=== PATIENT | female | born 1970 | race Caucasian/White ===

== ENCOUNTER 2017-11-23 18:00 | Outpatient (RCR) | payer OTHER, SELFPAY ==
--- NOTE | 2017-10-25 17:49 | HP.PTEVAL ---
Patient's Visit Information LORENZO COX is a 47 year old F referred to Physical Therapy by Javier Glez, with a diagnosis of R REVISION CUBITAL TUNNEL RELEASE W/ ANTERIOR TRANSPOSITION. R MED EPICONDY. Date of Evaluation: 10/25/17 Physical Therapist: Christi Solitario - Visit Plan Frequency: 2x /Week Duration: 10 VISITS Plan: POSTURE CORRECTION/STRENGTHENING, INSTRUCTION IN APPROPRIATE BODY MECHANICS AND ACTIVITY MODIFICATIONS. INSTRUCTION IN PROPER WORK STATION ERGONOMICS. RIGHT UE ROM, STRETCHING AND STRENGTHENING. EDEMA REDUCTION. DESENSITIZATION/SENSORY RETRAINING. HEP INSTRUCTION. - Subjective Subjective: Diagnosis: R REVISION CUBITAL TUNNEL RELEASE W/ ANTERIOR TRANSPOSITION DECEMBER [address] GLEZ. R MED EPICONDYLITIS/GOLFERS ELBOW. Work/Leisure: [email or web address]. 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 Disability: NO. Present symptoms: RIGHT MEDIAL ELBOW PAIN/NUMBNESS/TINGLING. Present since: 2013. Pain Scale: WORST 6/10, LEAST 2/10. Currently: 4/10. 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 Symptoms at onset: NUMBNESS RIGHT DIGITS 4&5. Worse: LYING DOWN, PRESSURE ON AN ARM REST, PRONLONGED BENT ELBOW - EX ON PHONE, PULLING DOWN FROM OVER-HEAD, PROLONGED TYPING, WORSE THE DAY PROGRESSES. Better: REST, STRETCHING, IBUPROFEN. Disturbed sleep: YES. Previous history/Previous treatment: 2 SURGERIES. MOST RECENT 2015. PT. OT. Dizziness: NOT CURRENTLY. Tinnitis: NOT CURRENTLY. Nausea: NO. Difficulty Swollowing: NO. Gait: NORMAL. Accidents: NO. Unexplained weight loss: NO. Imaging: NO RECENT IMAGING. PMH: MENIERS DZ, HYPOTHYROIDISM. Recent major surgery: NO OTHERS. OTHER: PATIENT REPORTS THAT THE THINGS SHE KNOWS TO DO ARE NOT HELPING HER ELBOW CONTINUE TO GET BETTER AND SHE IS WONDERING IF IT IS GOING TO BE THIS WAY FOR THE REST OF HER LIFE OR IF THERE IS ANYTHING ELSE THAT CAN BE DONE. DOING CROSS FIT UNTIL LAST BUT HURT HER RIGHT WRIST SO HAS NOT GONE BACK. PATIENT REPORTS HER RIGHT ELBOW WAS DOING ABOUT THE SAME WITH CROSS FIT VS WITHOUT. SHE REPORTS HER WRIST IS FINE NOW. - Objective Sitting Posture: POOR. Standing Posture: FAIR. Other Observations: INDEP GAIT INTO PT WITHOUT ASSISTIVE DEVICE. PATIENT IS PLEASANT AND COOPERATIVE TO WORK WITH. Motor deficit: PHILIP UE STRENGTH IS 5/5 WITH MMT EXCEPT PHILIP SCAPULAR STRENGTH GRADED 4/5. PATIENT DENIES INCREASED PAIN WITH STRENGTH TESTING EXCEPT ALMOND GRINDER TEST. RIGHT HAND DOMINANT WITH A RIGHT ALMOND GRINDER STRENGTH OF 65 LBS AND LEFT 70 LBS. INCREASED PAIN WITH TESTING ON THE RIGHT. Sensory deficit: HYPERSENSATIVITY OF RIGHT ELBOW SCAR. ROM deficit: FULL RIGHT UE ROM. Dural Signs: NEGATIVE. Cervical Mvmt Loss: Flex: NIL. Pro: NIL. Ext: MIN. Ret: MIN TO MOD. RSB: NIL. LSB: NIL. R Rot: NIL. L Rot: NIL. Postural strength: POOR. Palpation: GOOD RIGHT ELBOW SCAR MOBILITY. INCREASED PAIN WITH PRESSURE ON RIGHT MEDIAL ELBOW. OTHER: INCREASED RIGHT ELBOW PAIN WITH STRETCHING OF RIGHT WRIST FLEXORS. - Goals Goal 1:: DECREASE C/O RIGHT MEDIAL ELBOW SX'S Goal Time Frame: 4-6 Weeks Goal 2:: IMPROVE WORK, RECREATIONAL AND SLEEP FUNCTION Goal Time Frame: 4-6 Weeks Goal 3:: INDEP HEP Goal Time Frame: 4-6 Weeks - Rehabilitation Potential Rehabilitation Potential: Fair - Anticipated Interventions Patient/Client Instruction: Educate patient on: Condition, Plan of Care, Risk Factors, Benefits of Fitness Program For the Purpose of:: To improve self management Therapeutic Exercise to Include: Strength training, Body mechanics, Postural training, Flexibilty training, Neuromotor development, Scapular Strength/Stabilization Comment: *INSTRUCTION IN PROPER WORK STATION ERGONOMICS For the Purpose of:: To improve ability of physical actions for home/community/work/leisure Manual Therapy Techniques to Include: Other Comment: DESENSITIZATION For the Purpose of:: To decrease pain Thank you for the opportunity to evaluate your patient. For Medicare and Medicare HMO plans, please review the plan of care and approve it. It will need to be FAXED BACK to us at [phone] for Medicare purposes. Please let me know if there are questions or concerns regarding this plan of care. Physician Signature: Date:
--- NOTE | 2017-11-29 17:30 | DT_ITS ---
This patient was seen during an EMR downtime November 27, 2017 - December 04, 2017. This patient may have a combination of paper and electronic documentation or all paper documentation. All documentation is viewable within the e-chart portion of [employer] for each patient visit.
--- NOTE | 2017-12-24 13:21 | HP.PTDCSUM ---
HP - PT D/C Summary It has been my pleasure to treat LORENZO COX under orders from Javier Hartman, , for the diagnosis of R REVISION CUBITAL TUNNEL RELEASE W/ ANTERIOR TRANSPOSITION. R MED EPICONDLeona for a total of 9 visit(s). Discharge Date: 11/29/17 Please see the following information for a summary of their discharge status. - Subjective Subjective: NO WORSE. MAYBE A LITTLE BETTER. THINKS THE STRETCHES MIGHT HELP WITH TIME. F/U SCHEDULED IN ABOUT [address] CHU AT [facility]. - Pain RIGHT MEDIAL ELBOW Pain Intensity (Out of 10): 1 - Overall Improvement % Improvement: 0 - Objective Objective/Function: PHILIP MANAGER BUSINESS INFORMATION 70 LBS. GOOD RIGHT SHOULDER ROM AND STRENGTH. RIGHT ELBOW, WRIST AND HAND ROM AND STRENGTH WFL. THE ONLY THING THAT PROVOKES PAIN IS RIGHT MEDIAL ELBOW PALPATION TODAY. NO SIGNIFICANT CHANGES BUT INDEP WITH HEP. US - NE. - Goals Goal 1:: DECREASE C/O RIGHT MEDIAL ELBOW SX'S Goal Progress: Not Progressing Goal 2:: IMPROVE WORK, RECREATIONAL AND SLEEP FUNCTION Goal Progress: Not Progressing Goal 3:: INDEP HEP Goal Progress: Goal Met - Plan Plan: D/C DUE TO LACK OF PROGRESS. PATIENT AGREEABLE. - D/C Information If there are questions or concerns regarding this patient's physical therapy, please feel free to call me at [phone]. Thank you for the referral of this patient. Sincerely, Christi Solitario
== END 2017-11-23 19:00 | disposition home or self-care (01) ==
LOC: PT 18:00
PROVIDERS: Family Provider Student in an Organized Health Care Education/Training Program; PCP Student in an Organized Health Care Education/Training Program; Visit Provider Orthopaedic Surgery Hand Surgery
DX: M77.01 Medial epicondylitis, right elbow (principal)
CPT/HCPCS: 97035; 97110; 97161; 97164; 97530

== ENCOUNTER 2018-08-23 10:21 | Day surgery (SDC) | payer BC, SELFPAY ==
[2018-08-23] VITALS (10 sets, daily range): BP systolic 93–146; BP diastolic 71–86; PULSE 58–73; RESP 16–18; TEMP 36.3–37.3; O2SAT 96–100; BMI 26.9
[2018-08-23 10:46] LABS: Internal QC Validated? YES +Cl - CLEAR BKGD; Pregnancy, Urine Negative Negative
[2018-08-23 10:49] LABS: Hematocrit 43.1 % (37-47); Hemoglobin 14.5 g/dl (12.0-15.0); Mean Corp Hgb Conc 33.6 g/gl (32-36); Mean Corpuscular Hgb 32.6 pg (27.0-32.0); Mean Corpuscular Volume 96.9 fL (81-99); Mean Platelet Vol. 9.9 fl (6.2-12.0); Platelet Count 286 K/mm3 (150-450); RBC Distribution Width CV 12.2 % (11.6-14.6); Red Blood Count 4.45 M/mm3 (4.2-5.4); White Blood Count 7.8 K/mm3 (4.4-11.0)
[2018-08-23 10:52] LABS: Scan Indicated on CBC? Y/N NO
--- NOTE | 2018-08-23 11:55 | EMB_PTH ---
PATIENT: LORENZO COX LOC: [facility] [place] U#:[id number] AGE/SX: 48/F ROOM: RE08/23/[address]: Dr. Priya Ojeda DO : 1970 BED: DIS: 08/23/2018 SPEC #: [id number] RECD: 08/23/18 14:56 STATUS: NEAL CHRISSY #: [id number] KAYLI: 08/23/18 11:[address]: Priya Ojeda DEPT: SURGICAL PATHOLOGY RECD BY: Angus Bryant ENTERED: 08/24/18 11:16 SP TYPE: ENDOM BX/C GABRIELHR DR: Dr. Blade Toure DO Tissues: Endometrium, NOS Procedures: Surgery Specimen Level IV HEADER OPERATION: Hysteroscopy, polypectomy with Symphion, dilation and curettage PRE-OP DIAGNOSIS: Abnormal uterine bleeding, endometrial polyp TISSUE SUBMITTED: Endometrial curettings MICROSCOPIC DIAGNOSIS Endometrial curettings: Weakly proliferative endometrium with focal glandular and stromal breakdown. See comment. SJ:shanthi 08/27/18 COMMENT A few of the fragments appear polypoid and may represent fragments of polyp. MICROSCOPIC DESCRIPTION Slides are reviewed. GROSS DESCRIPTION Received in fixative is one container labeled with the patient's name and designated endometrial curettings. The specimen consists of multiple fragments of hemorrhagic soft tissue that in aggregate measure 3 x 2.5 x 0.2 cm. The specimen is totally submitted in one cassette. / MARYCHUY:shanthi 08/24/18 TC:5 CPT: 88511
--- NOTE | 2018-08-23 12:36 | PCM.WORK.EX ---
Work/School Excuse Work/School Excuse for:: Patient Please excuse this person from:: Work From: 08/23/18 through: 08/24/18
--- NOTE | 2018-08-23 12:39 | DCINST_ITS ---
Discharge Diet: No Restrictions Discharge Activity: Return to Normal Activity, May Shower May resume sexual activity in: 1-2 weeks Weight Bearing Status: Full weight bearing Lifting Restrictions: None Call your doctor if you observe: Fever of 101 or Higher, Inability to urinate, Inability to have a bowel movement, Using more than one pad per hour, Shortness of breath, Dizziness, Fainting spells, Chest pain, Increased palpitations (ir regular heartbeat), Calf discomfort, Uncontrolled pain Allergies/Adverse Reactions: Allergies latex Allergy (Verified 08/21/18 13:02) Rash Medications to take at Discharge Meclizine HCl [Antivert] 12.5 mg PO Q6H PRN PRN 02/03/15 Triamterene 37.5MG/Hctz 25MG [Dyazide (G)] 1 cap PO DAILY PRN PRN 02/03/15 Levothyroxine [Synthroid] 100 mcg PO DAILY #90 tablet 02/09/15 Diazepam [Valium] 2 mg PO TID PRN PRN #10 tablet 08/13/15 Norethindrone-E.estradiol-Iron [Junel Fe 1 mg-20 Mcg Tablet] 1 each PO DAILY 08/21/18 Primary Care Physician: Blade Toure DO [Primary Care Provider] - Test Results: Test results from this visit will be discussed in further detail at your follow- up appointment, if applicable. Please Follow Up With: Priya Ojeda DO When: 1-2 weeks
--- NOTE | 2018-08-23 12:40 | PCM.OPRPT ---
Problem List (1) Abnormal uterine bleeding (AUB) Status: Acute (2) Endometrial polyp Status: Acute Report of Operation Date of Procedure: 08/23/18 Pre-Operative Diagnosis: AUB, endometrial polyp on in office biopsy Post-Operative Diagnosis: AUB Surgery/Procedure Performed:: Hysteroscopy, polypectomy, D&C Description of Surgical Findings:: Very good descent of uterus and cervix. Uterine cavity normal in appearance, bilateral tubal ostia visualized. Endometrium thin and atrophic appearing. No polyp or fibroid noted. Type of Anesthesia:: MAC Specimen's removed: Endometrial curettings Estimated Blood Loss (mL): < 50 cc Description of Procedure: Patient was taken to the operating room where MAC anesthesia was found to be adequate. She was prepped and draped in the dorsal lithotomy position using yellow fin stirrups. A weighted speculum was placed and the cervix exposed. A single tooth tenaculum was placed on the anterior lip of the cervix. The cervix was then dilated to accommodate the Symphion hysteroscope. The Symphion hysteroscope was then advanced into the uterus, and the cavity was distended with normal saline. The uterine cavity was normal in appearance and bilateral tubal ostia were visualized. The endometrium was thin appearing. There was no polyp noted within the uterus or cervix. The hysteroscope was then removed. A D&C was performed using sharp curettage. The endometrial curettings were sent to pathology for review. All instruments were removed from the vagina and hemostasis was noted. Instrument counts were correct and the patient taken to the recovery room in stable condition. - Complications None - Admit VTE Documentation VTE Present on Admission: No VTE Mechan Device Prophylaxis: SCD's
== END 2018-08-23 15:16 | disposition home or self-care (01) ==
LOC: SDC 10:25 → AC 10:26
PROVIDERS: Family Provider Student in an Organized Health Care Education/Training Program; PCP Student in an Organized Health Care Education/Training Program; Referring Provider Obstetrics & Gynecology; Visit Provider Obstetrics & Gynecology
PROC: 0UB98ZZ Excision of Uterus, Via Natural or Artificial Opening Endoscopic (ICD-10-PCS; CPT 58558; principal; 2018-08-23 11:40)
DX: N84.0 Polyp of corpus uteri (principal); N93.9 Abnormal uterine and vaginal bleeding, unspecified; E89.0 Postprocedural hypothyroidism; Z79.3 Long term (current) use of hormonal contraceptives; Z79.899 Other long term (current) drug therapy; Z86.010 Personal history of colon polyps
CPT/HCPCS: 00952; 58558; 36415; 81025; 85027; 86850; 86900; 88305; J7120; J2405

== ENCOUNTER → 2018-11-29 13:32 | Outpatient (CLI) | payer BC, SELFPAY ==
[2018-08-23 10:56] VITALS: BMI 26.9
[2018-11-29 14:43] LABS: Free T3 2.9 pg/mL (2.18-3.98); T4 Free Direct 1.41 ng/dL (0.76-1.46); Thyroid Stim Hormone (TSH) 0.03 uIU/mL (0.358-3.74)
== END ==
PROVIDERS: Family Provider Student in an Organized Health Care Education/Training Program; PCP Student in an Organized Health Care Education/Training Program; Visit Provider Student in an Organized Health Care Education/Training Program
DX: E03.9 Hypothyroidism, unspecified (principal)
CPT/HCPCS: 84439; 84443; 84481

== ENCOUNTER 2019-01-30 14:00 | Outpatient (RCR) | payer OTHER, BC, SELFPAY ==
[2018-08-23 10:56] VITALS: BMI 26.9
--- NOTE | 2018-12-26 15:04 | HP.OTEVAL_ITS ---
Patient's Visit Information LORENZO COX is a 48 year old F, referred to Occupational Therapy by Javier Hartman MD, with a diagnosis of medial nerve. Date of Evaluation: 12/26/18 Occupational Therapist: Alisha Gomez, OTAlen/Lizzy, CHT - Subjective Subjective: This 48 year old female was seen for OT eval with dx of medial epicondylitis of right elbow, golfers elbow of right URE. Pt states she underwent two ulnar nerve sx. 1st sx was August 2014, December 2015 ulnar nerve transposition. pt states she can not rest her arm down flat and she was unable to sleep, and she notices she is weaker on her right side. Pt would like to increase her strength and decrease elbow sensitivity - Strength Shoulder: right 4/5 left 5/5 Elbow: right 4/5 left 5/5 Forearm: right 4/5 left 5/5 Wrist: right 4/5 left 5/5 Logistics Supervisor: right 70# left 70# Lateral Pinch: right 12# left 15# Tripod Pinch: right 17# left 14# Strength Comments: pt demo with weak Right UE- would benefit from skilled OT services to strengthen pt. - Sensation Sensation Comments: pts sensation around ulnar nerve incision is numb and makes sleeping difficult for her. pt states pressure is uncomfortable - Quick DASH-Disab of Arm,Shoulder& Hand Quick DASH Score: 26.6650 - Goals Goal:: pt will demo increase in right UE MMT to 5/5 by d/c to return pt to PLOF Goal:: pt will demo understanding of work ergo, and limiting right elbow hyper extension with daily tasks by d/c. - Rehabilitation General Assessment: Pt demo with weakness of right UE limiting pts ind. with ADLS and IADLS. Pt would benefit from skilled OT services 2-3x week for 4 weeks. Today pt was ed. on PRE of right UE, given handouts and demo understanding of ex. pt agrees to POC. Rehabilitation Potential: Good - Anticipated Interventions Anticipated Interventions: Strengthening, Scar Care, Triggerpoint Release, Modalities, Ergonomic Education, Education re Diagnosis, Home Program - Visit Plan Frequency: 2-3x /Week Duration: 4 Weeks TEXT: Thank you for the opportunity to evaluate your patient. For Medicare and Medicare HMO plans, please review the plan of care and approve it. It will need to be FAXED BACK to us at [phone] for Medicare purposes. Please let me know if there are questions or concerns regarding this plan of care. Physician Signature: Date:
--- NOTE | 2019-01-30 17:08 | HP.OTDCSUM ---
HP - OT D/C Summary It has been my pleasure to treat LORENZO COX under orders from Javier Hartman MD, for the diagnosis of medial nerve for a total of 7 visit(s). Please see the following information for a summary of their discharge status. - Objective Objective/Function: pt demo a right parliamentary librarian strength at 70# a right lateral pinch of 12# and tripod pinch of 17#. pt to cont with HEP to cont with PRE. - Goals Patient Goals: Regain Strength Goal:: pt will demo increase in right UE MMT to 5/5 by d/c to return pt to PLOF Goal:: pt will demo understanding of work ergo, and limiting right elbow hyper extension with daily tasks by d/c. - Plan Plan: D/C - D/C Information Discharge Comments: pt was seen in OT for 7 visits demo good understanding of HEP, pt agree to POC. If there are questions or concerns regarding this patient's occupational therapy, please fell free to call me at [phone]. Thank you for the referral of this patient. Sincerely, Alisha Gomez, OTR/L, CHT
== END 2019-01-30 19:00 | disposition home or self-care (01) ==
LOC: OT 14:00
PROVIDERS: Family Provider Student in an Organized Health Care Education/Training Program; PCP Student in an Organized Health Care Education/Training Program; Referring Provider Orthopaedic Surgery Hand Surgery; Visit Provider Orthopaedic Surgery Hand Surgery
DX: M77.01 Medial epicondylitis, right elbow (principal)
CPT/HCPCS: 97110; 97166; 97530

== ENCOUNTER 2020-07-02 09:53 | Day surgery (SDC) | payer OTHER, SELFPAY ==
[2018-08-23 10:56] VITALS: BMI 26.9
--- NOTE | 2020-06-30 08:15 | PCM.HP.BLA ---
History and Physical Date of Admission: 07/02/20 Expand AllCollapse All Hide copied text Rasfaye for details Pre-Op History and Physical ? HPI: The patient is a 50 year old female presenting for pre-operative visit. She is scheduled for Cold Knife conization, for AIS on 07/02/2020. Procedure discussed along with risks, benefits and complications. Other alternatives discussed for management. Consent form signed? Yes. ? ? PAST MEDICAL HISTORY PAST MEDICAL HISTORY Diagnosis Date ? Benign neoplasm of colon ? ? Meniere disease ? ? Personal history of colonic polyps ? ? PMH - PAST MEDICAL HISTORY OF ? ? allergies/seasonal ? 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 ? PAST SURGICAL HISTORY PAST SURGICAL HISTORY Procedure Laterality Date ? COLONOS W/REM POLYP SNARE ? 04/28/06 ? Small polyp of rectum ? COLONOSCOP W/ OR W/O BRSH SPEC ? 12/2001 ? tubular adenoma ? COLONOSCOP W/ OR W/O BRSH SPEC ? 12/12/14 ? repeat in 3 years ? COLONOSCOP W/ OR W/O BRSH SPEC ? 04/20/2018 ? repeat in 3 years ? COLONOSCOPY ? 09/02/98 ? tubular adenoma ? COLONOSCOPY W/BX ? 05/27/11 ? FNA WITH IMAGING Right 01/07/15 ? U/S FNA right thyroid nodule ? HYSTEROSCOPY ? 08/17/2018 ? D&C for AUB, benign pathology w/ fragments of polyp ? LIGATE FALLOPIAN TUBE ? 02/22/2007 ? Tubal ligation ? PAST SURGICAL HISTORY OF ? 09/02/2014 ? right elbow surgery ? PAST SURGICAL HISTORY OF Right 12/2015 ? ulner nerve ? SIGMOIDOSCOPY FLEX DIAG ? 08/14/98 ? polyp ? THYROIDECTOMY ? 02/09/2015 ? bilateral total ? ? ? CURRENT MEDICATIONS Current Outpatient Medications Medication Sig Dispense Refill ? levothyroxine (LEVOXYL) 112 mcg tablet Take on empty stomach. For thyroid. Take 1/2 tablet by mouth daily 4 times/week and 1 full tablet by mouth daily 3 times/week. 30 tablet 4 ? triamterene-hydrochlorothiazide (MAXZIDE-25) 37.5-25 mg per tablet hydroCHLOROthiazide / triamterene TRIAMTERENE-HCTZ 37.5-25 MG TABS 1 tablet daily as needed for meniere's TRIAMTERENE-HCTZ [id number] Javier Hartman MD 08-26-2015 [facility] ([id number]) ? ? ? meclizine (ANTIVERT) 12.5 mg tab meclizine MECLIZINE HCL 12.5 MG TABS 1-2 as needed for dizziness MECLIZINE HCL [id number] Javier Hartman MD 08-26-2015 [facility] ([id number]) ? ? ? No current facility-administered medications for this visit. ? ? ALLERGIES: Latex and Environmental [Other] ? PERSONAL HISTORY: SOCIAL HISTORY Social History ? Tobacco Use ? Smoking status: Never Smoker ? Smokeless tobacco: Never Used Substance Use Topics ? Alcohol use: Yes ? ? Comment: Occasionally ? Drug use: No ? FAMILY HISTORY: FAMILY HISTORY FAMILY HISTORY Problem Relation Age of Onset ? Osteoporosis Mother ? ? other (Lung Cancer) Father 66 ? smoker, Summer 2010 ? Breast Cancer Maternal Grandmother ? ? developed in her 70's ? other (colon polyps) Maternal Grandmother ? ? colon polyps ? Diabetes Paternal Grandfather ? ? ? REVIEW OF SYMPTOMS: negative except as noted above PHYSICAL EXAMINATION: ? VITALS: Blood pressure 122/78, height 5' 6 (1.676 m), weight 170 lb (77.1 kg), last menstrual period 06/08/2020. ? GENERAL: The patient is well nourished, well hydrated in no acute distress. , The patient is oriented to time, place, and person. NECK: full range of motion GENITALIA: deferred WET PREP: Not indicated ? IMPRESSION: 50yo with JADE pap- found to have AIS (emb benign) ? PLAN: Cold knife conization ? Pt has been counseled on risks/benefits and alternatives of surgery including but not limited to anesthesia, bleeding, infection, injury to pelvic structures. Post op meds given If negative margins and no invasive disease pt understands hysterectomy will be scheduled at later date. ? I have reviewed and updated past medical and surgical history, medications and allergies Fanny Hayes MD ?8:59 AM
[2020-07-01 16:01] LABS: Hematocrit 41.4 % (37-47); Hemoglobin 14.1 g/dL (12.0-15.0); Mean Corp Hgb Conc 34.1 g/dL (32-36); Mean Corpuscular Hgb 32.6 pg (27.0-32.0); Mean Corpuscular Volume 95.6 fL (81-99); Mean Platelet Vol. 10.5 fl (6.2-12.0); Platelet Count 252 K/mm3 (150-450); RBC Distribution Width CV 11.7 % (11.6-14.6); RBC Distribution Width SD 40.5 fl (35.1-43.9); Red Blood Count 4.33 M/mm3 (4.2-5.4); White Blood Count 5.9 K/mm3 (4.4-11.0)
[2020-07-02] VITALS (9 sets, daily range): BP systolic 103–135; BP diastolic 67–82; PULSE 67–83; RESP 16; TEMP 36.2–37.1; O2SAT 94–99; BMI 26.9
[2020-07-02 10:33] LABS: Internal QC Validated? YES +Cl - CLEAR BKGD; Pregnancy, Urine Negative Negative
[2020-07-02] MEDS: Lactated Ringers 1,000 ML 100 ML IV ×2 (10:39→12:31)
--- NOTE | 2020-07-02 11:40 | CONE_PTH ---
PATIENT: LORENZO COX [place] [facility] [place] U[place][id number] AGE/SX: 50/F ROOM: RE07/02/[address]: Dr. Fanny Aguiar, MDDOB: 1970 BED: DIS: 07/02/2020 SPEC #: [id number] RECD: 07/02/20 12:50 STATUS: NEAL RENica #: [id number] KAYLI: 07/02/20 11:[address]: Fanny Aguiar DEPT: SURGICAL PATHOLOGY RECD BY: Stefani Barragan ENTERED: 07/03/20 07:16 SP TYPE: Leep Cone GABRIELHR DR: Dr. Blade Toure, DO Tissues: A - UTERINE CERVIX LEEP B - Endocervical Procedures: Surgery Specimen Level IV Surgery Specimen Level V HEADER OPERATION: Cold knife conization PRE-OP DIAGNOSIS: AIS (EMB benign) TISSUE SUBMITTED: A - Cone biopsy of cervix, suture at 12 o'clock, B - Endocervical curettings MICROSCOPIC DIAGNOSIS A. 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 Chronic cystic cervicitis with tunnel cluster formation and minimal acute cervicitis. Resections margins are free of dysplasia/adenocarcinoma in situ. B. Endocervical curettings: Fragments of crushed endocervical epithelial cells and blood. A minute fragment of fibroadipose tissue. Negative for glandular dysplasia/ adenocarcinoma in situ. See comment. SJ:shanthi 07/06/2020 COMMENT A. Significance of the presence of the fibroadipose tissue is not clear. Endocervical glandular dysplasia and adenocarcinoma in situ are noted in the block 1, 2 & 4. Clinical correlation and appropriate follow up are necessary. Please also make reference to previous specimen from [facility] ([id number]) dated 06/10/20, endocervix, curettings and ectocervix, 12 o'clock, biopsy with diagnosis of endocervical adenocarcinoma in situ. Case has been reviewed in consultation with Dr. Carmen who concurs with the above diagnosis. IDC:AM MICROSCOPIC DESCRIPTION Slides are reviewed. GROSS DESCRIPTION A - Received in fixative is one container labeled with the patient's name and designated cone biopsy of cervix. The specimen consists of two irregular fragments of light mahmood soft tissue. The smaller fragment measures 1.5 x 0.5 x 0.2 cm. The larger fragment consists of a cone measuring 2.5 cm in diameter and having a length of 2.5 cm. No mucosal mass lesions are identified. The specimen is inked, radially sectioned and totally submitted in four cassettes as follows: 1 - 12-3 o'clock, 2 - 3-6 o'clock, 3 - 6-9 o'clock, 4 - 9-12 o'clock and including the separate fragment of tissue in container. B - Received in fixative is one container labeled with the patient's name and designated endocervical curettings. The specimen consists of light to dark mahmood soft tissue measuring in aggregate 1.5 x 1 x <0.1 cm. The specimen is totally submitted in one cassette. / AM:shanthi 07/03/2020 TC:0 CPT: 23307, 43647
--- NOTE | 2020-07-02 11:53 | DCINST_ITS ---
Discharge Diet: No Restrictions Discharge Activity: Return to Normal Activity, May not drive while taking narcotic pain medications. May resume sexual activity in: 4 weeks - nothing in the vagina for 4 weeks. Call your doctor if you observe: Fever of 101 or Higher, Using more than one pad per hour Allergies/Adverse Reactions: Allergies latex Allergy (Verified 07/02/20 10:40) Rash Medications to take at Discharge Bio Cleanse 2 tab PO DAILY 06/24/20 Levothyroxine [Synthroid] 56 mcg PO MOTUTHFR 06/24/20 Levothyroxine [Synthroid] 112 mcg PO SUWESA 06/24/20 Plexus 1 unit PO DAILY 06/24/20 Pro Bio 5 2 tab PO DAILY 06/24/20 Primary Care Physician: Blade Toure DO [Primary Care Provider] - Test Results: Test results from this visit will be discussed in further detail at your follow- up appointment, if applicable. Please Follow Up With: Fanny Aguiar MD When: 2 weeks as scheduled
[2020-07-02] MEDS: Iodine/Potassium Iodide 14ML Bottle 1 DRP TOPICAL (12:06)
[2020-07-02] MEDS: FERRIC SUBSULFATE 8 GM SOLN (12:06)
[2020-07-02] MEDS: Lidocaine 1%/Epi 1:200 (30ml) 30 ML AMPUL (12:06)
--- NOTE | 2020-07-02 12:27 | PCM.OPRPT ---
Report of Operation Date of Procedure: 07/02/20 - 12:06 start to 12:28 end Pre-Operative Diagnosis: Adenocarcinoma Insitu of cervix Post-Operative Diagnosis: same Surgery/Procedure Performed:: Cold knife conization , endocervical curettings Description of Surgical Findings:: Cervix with no gross lesions, lugols applied Type of Anesthesia:: Local, MAC Special Medications: 1% lidocaine with epinephrine , surgicel Specimen's removed: Cervical cone biopsy and endocervical curettings Drains: none Estimated Blood Loss (mL): 10 Fluids Replaced: 1000cc Description of Procedure: Patient was taken to the operating room she was placed in supine position. Bladder was drained approximately 300 cc of urine. She was prepped and draped in normal sterile fashion. After anesthesia was found to be adequate the vaginal retractors were placed. At this time lugols was placed over the cervix no gross abnormalities were appreciated. At this time 1% lidocaine with epinephrine was injected in a circumferential fashion. Stay sutures were placed at 3 and 9:00 using 0 Vicryl. At this time using an 11 blade and a 45 degree scalpel handle a cone biopsy was performed. After the specimen was removed the endocervical curettings were obtained. At this time the Bovie was used to coagulate around the margins and inner cervical aspect. At this time then Surgicel was placed and the stay sutures were tied for good hemostasis. Unsell solution was placed. The cone biopsy was tagged at 12:00. Excellent hemostasis was appreciated. Vaginal sweep was negative. Grafts/Implants Used: surgicel placed - Complications none - Admit VTE Documentation VTE Present on Admission: Yes VTE Mechan Device Prophylaxis: SCD's VTE Pharm Prophylaxis ordered?: No
== END 2020-07-02 13:50 | disposition home or self-care (01) ==
LOC: SDC 09:59 → AC 09:59
PROVIDERS: Anesthesiology; PCP Student in an Organized Health Care Education/Training Program; Referring Provider Obstetrics & Gynecology; Visit Provider Obstetrics & Gynecology
PROC: 0UBC7ZZ Excision of Cervix, Via Natural or Artificial Opening (ICD-10-PCS; CPT 57522; principal; 2020-07-02 11:25)
DX: D06.0 Carcinoma in situ of endocervix (principal); N72 Inflammatory disease of cervix uteri; E89.0 Postprocedural hypothyroidism; H81.09 Meniere's disease, unspecified ear; Z20.822 Contact with and (suspected) exposure to COVID-19
CPT/HCPCS: 00940; 57520; 36415; 81025; 85027; 87426; 88305; 88307; C9803; J7120; J2405

== ENCOUNTER 2020-08-06 05:53 | Day surgery (SDC) | payer OTHER, SELFPAY ==
[2020-07-02 10:33] VITALS: BMI 26.9
--- NOTE | 2020-08-03 13:11 | EKG12_ITS ---
Test Reason : PRE OP Blood Pressure : / mmHG Vent. Rate : 066 BPM Atrial Rate : 066 BPM P-R Int : 138 ms QRS Dur : 070 ms QT Int : 392 ms P-R-T Axes : 043 004 -08 degrees QTc Int : 410 ms Normal sinus rhythm Nonspecific ST and T wave abnormality Abnormal ECG Confirmed by ENZO SIMON, ZELDA ([id number]), writer editor BRENDA SIERRA ([id number]) on 08/04/2020 8:15:35 AM Referred By: Fanny Aguiar Confirmed By:ZELDA GIRALDO MD
[2020-08-03 14:04] LABS: Hematocrit 40.1 % (37-47); Hemoglobin 13.5 g/dL (12.0-15.0); Mean Corp Hgb Conc 33.7 g/dL (32-36); Mean Corpuscular Hgb 31.8 pg (27.0-32.0); Mean Corpuscular Volume 94.4 fL (81-99); Mean Platelet Vol. 10.3 fl (6.2-12.0); Platelet Count 247 K/mm3 (150-450); RBC Distribution Width CV 11.7 % (11.6-14.6); RBC Distribution Width SD 40.5 fl (35.1-43.9); Red Blood Count 4.25 M/mm3 (4.2-5.4); White Blood Count 6.2 K/mm3 (4.4-11.0)
[2020-08-03 14:25] LABS: Anion Gap 3 (5-15); BUN 10 mg/dL (7-18); BUN/Creat Ratio 9.4 RATIO (10-20); Calcium,Total 8.9 mg/dL (8.5-10.1); Chloride 107 mmol/L (98-107); Creatinine, Serum 1.06 mg/dL (0.55-1.02); EST Glomerular Filtration Rate 58 mL/min (>60); Est Glom Filt Rate - Afr Amer 71 mL/min (>60); Glucose 81 mg/dL (74-106); Sodium Level 139 mmol/L (136-145)
[2020-08-03 14:38] LABS: Magnesium 2.5 mg/dL (1.6-2.6); Thyroid Stim Hormone (TSH) 0.42 uIU/mL (0.358-3.74)
--- NOTE | 2020-08-03 17:37 | PCM.HP.BLA ---
History and Physical Date of Admission: 08/03/20 Fanny Hayes Physician Specialty: PR[facility]ER H&P ? Signed Encounter Date: 07/16/2020 Expand AllCollapse All Hide copied text Silvia for details Pre-Op History and Physical ? HPI: The patient is a 50 year old female presenting for pre-operative visit and discussion regarding results of CKC. 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 She is scheduled for TLH, Bilateral salpingectomy, cysto, for AIS with negative margins on CKC on 08/06/20. Procedure discussed along with risks, benefits and complications. Other alternatives discussed for management. Consent form signed? Yes. ? ? PAST MEDICAL HISTORYExpand by Default PAST MEDICAL HISTORY Diagnosis Date ? Benign neoplasm of colon ? ? Meniere disease ? ? Personal history of colonic polyps ? ? PMH - PAST MEDICAL HISTORY OF ? ? allergies/seasonal ? 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 ? PAST SURGICAL HISTORYExpand by Default PAST SURGICAL HISTORY Procedure Laterality Date ? COLONOS W/REM POLYP SNARE ? 04/28/2006 ? Small polyp of rectum ? COLONOSCOP W/ OR W/O BRSH SPEC ? 12/2001 ? tubular adenoma ? COLONOSCOP W/ OR W/O BRSH SPEC ? 12/12/2014 ? repeat in 3 years ? COLONOSCOP W/ OR W/O BRSH SPEC ? 04/20/2018 ? repeat in 3 years ? COLONOSCOPY ? 09/02/1998 ? tubular adenoma ? COLONOSCOPY W/BX ? 05/27/2011 ? CONIZATION OF CERVIX; COLD KNIFE/LASER ? 07/02/2020 ? FNA WITH IMAGING Right 01/07/2015 ? U/S FNA right thyroid nodule ? HYSTEROSCOPY ? 08/17/2018 ? D&C for AUB, benign pathology w/ fragments of polyp ? LIGATE FALLOPIAN TUBE ? 02/22/2007 ? Tubal ligation ? PAST SURGICAL HISTORY OF ? 09/02/2014 ? right elbow surgery ? PAST SURGICAL HISTORY OF Right 12/2015 ? ulner nerve ? SIGMOIDOSCOPY FLEX DIAG ? 08/14/1998 ? polyp ? THYROIDECTOMY ? 02/09/2015 ? bilateral total ? ? ? CURRENT MEDICATIONSExpand by Default Current Outpatient Medications Medication Sig Dispense Refill ? ibuprofen (MOTRIN) 600 mg tablet Take 1 tablet by mouth every 6 hours as needed. 30 tablet 0 ? levothyroxine (LEVOXYL) 112 mcg tablet Take on empty stomach. For thyroid. Take 1/2 tablet by mouth daily 4 times/week and 1 full tablet by mouth daily 3 times/week. 30 tablet 4 ? triamterene-hydrochlorothiazide (MAXZIDE-25) 37.5-25 mg per tablet hydroCHLOROthiazide / triamterene TRIAMTERENE-HCTZ 37.5-25 MG TABS 1 tablet daily as needed for meniere's TRIAMTERENE-HCTZ [id number] Javier Hartman MD 08-26-2015 [facility] ([id number]) ? ? ? meclizine (ANTIVERT) 12.5 mg tab meclizine MECLIZINE HCL 12.5 MG TABS 1-2 as needed for dizziness MECLIZINE HCL [id number] Javier Hartman MD 08-26-2015 [facility] ([id number]) ? ? ? No current facility-administered medications for this visit. ? ? ALLERGIES: Latex and Environmental [Other] ? PERSONAL HISTORY: SOCIAL HISTORYExpand by Default Social History ? Tobacco Use ? Smoking status: Never Smoker ? Smokeless tobacco: Never Used Substance Use Topics ? Alcohol use: Yes ? ? Comment: Occasionally ? Drug use: No ? FAMILY HISTORY: FAMILY HISTORYExpand by Default FAMILY HISTORY Problem Relation Age of Onset ? Osteoporosis Mother ? ? other (Lung Cancer) Father 66 ? smoker, Summer 2010 ? Breast Cancer Maternal Grandmother ? ? developed in her 70's ? other (colon polyps) Maternal Grandmother ? ? colon polyps ? Diabetes Paternal Grandfather ? ? ? REVIEW OF SYMPTOMS: negative except as noted above PHYSICAL EXAMINATION: ? VITALS: Blood pressure 118/74, height 5' 6 (1.676 m), weight 170 lb (77.1 kg), last menstrual period 06/08/2020. ? GENERAL: The patient is well nourished, well hydrated in no acute distress. , The patient is oriented to time, place, and person. NECK: Full range of motion GENITALIA: Normal external genitalia, Urethral meatus normal, Bladder nontender, normal vagina and normal vaginal tone, normal cervix, normal uterus, size and consistency, normal adnexa without masses or tenderness and perineum WNL ? IMPRESSION: 50 yo with AIS, negative margins on CKC ? PLAN: TLH, Bilateral salpingectomy, cystoscopy ? Pt has been counseled on risks/benefits and alternatives of surgery including but not limited to anesthesia, bleeding, infection, injury to pelvic structures including bowel, bladder, ureters and vessels. Pt wishes to proceed with surgery at this time. ? Reviewed if any invasive disease will need referral to [facility] and possibility of second surgery. Offered patient [facility] second opinion or surgery with them and patient declines at this time. ? ? I have reviewed and updated past medical and surgical history, medications and allergies ? Fanny Hayes MD
[2020-08-06] VITALS (18 sets, daily range): BP systolic 93–126; BP diastolic 49–73; PULSE 56–73; RESP 14–16; TEMP 35.8–36.5; O2SAT 94–100; BMI 27.1
[2020-08-06 06:23] LABS: Internal QC Validated? YES +Cl - CLEAR BKGD; Pregnancy, Urine Negative Negative
[2020-08-06 06:40] LABS: Bedside Glucose 70 mg/dL (70-110)
[2020-08-06] MEDS: Phenazopyridine 95 MG Tablet 190 MG PO (06:49)
[2020-08-06] MEDS: Celecoxib 200 MG Capsule 400 MG PO (06:50)
[2020-08-06] MEDS: dexAMETHasone 10 MG/ML Vial 8 MG IV (06:51)
[2020-08-06] MEDS: Enoxaparin 40 MG/0.4 ML Syringe SC (06:52)
[2020-08-06] MEDS: Lactated Ringers 1,000 ML 40 ML IV (06:52)
[2020-08-06] MEDS: Acetaminophen 500 MG Tablet 1000 MG PO ×2 (06:53→12:00)
[2020-08-06] MEDS: Gabapentin 600 MG Tablet PO (06:53)
--- NOTE | 2020-08-06 07:43 | DCINST_ITS ---
Discharge Diet: No Restrictions Discharge Activity: Return to Normal Activity, May Not Drive - while taking narcotic pain medications., May Shower May shower in (days): 1 May resume sexual activity in: 6-8 weeks Lifting Restrictions: 20 Call your doctor if your incision/area has: Continuous Slow Oozing, Sudden Increased Bleeding, Increased Pain/ Swelling, Increased Redness, Foul Smelling Discharge Call your doctor if you observe: Fever of 101 or Higher, Inability to urinate, Inability to have a bowel movement, Using more than one pad per hour Cleanse incision/area with: - - you have skin glue over your incisions, do not pick off. may let soap and water run over incisions and dab dry. Allergies/Adverse Reactions: Allergies latex Allergy (Verified 07/30/20 11:07) Rash Medications to take at Discharge Bio Cleanse 2 tab PO DAILY 06/24/20 Levothyroxine [Synthroid] 56 mcg PO MOTUTHFR 06/24/20 Levothyroxine [Synthroid] 112 mcg PO SUWESA 06/24/20 Plexus 1 unit PO DAILY 06/24/20 Pro Bio 5 2 tab PO DAILY 06/24/20 Primary Care Physician: Blade Toure DO [Primary Care Provider] - Test Results: Test results from this visit will be discussed in further detail at your follow- up appointment, if applicable. Please Follow Up With: Fanny Aguiar MD - 2 weeks
--- NOTE | 2020-08-06 07:44 | OP.PCM_ITS ---
Report of Operation Date of Procedure: 08/06/20 - start 08 end time 09 Pre-Operative Diagnosis: Adenocarcinoma insitu of cervix Post-Operative Diagnosis: same Surgery/Procedure Performed:: LAVH, Bilateral salpingectomy, cysto Description of Surgical Findings:: normal tubes and ovaries. bilateral filshie clips noted and removed with specimen. Subserosal posterior fibroid. convertible sofa bedspring tester: Priya Ojeda Type of Anesthesia:: General Special Medications: 0.5% marcaine Specimen's removed: Uterus, cervix, bilateral fallopian tubes Drains: none Estimated Blood Loss (mL): 50 Fluids Replaced: 1500 Description of Procedure: Patient take to OR and prepped and draped in usual sterile fashion in dorsal lithotomy position with her arms tucked in a neurologically safe and neutral position. Unable to sound uterus- due to scaring from previous CKC. A tenaculum uterine manipulator and akbar were placed. Attention was turned to the abdomen. All port sites were infiltrated with 0.5% marcaine before the incisions were made. The anterior abdominal wall was tented up with towel clamps and using a direct entry approach a 5 mm intraumbilical port was placed. Intraperitoneal placement was confirmed with the laparoscope and the pneumoperitoneum was created. The patient was placed in Trendelenburg and 5 mm right and left lower quadrant ports were placed under direct visualization. The bowel was swept away. Ovaries appeared normal. The mesosalpinx starting at fibriated end were grasped, clamped, sealed and transected with the Ligasure. The round ligaments were divided. The anterior peritoneum was dissected down to create the bladder flap with blunt dissection and the LigaSure. The uterine arteries were isolated, clamped, sealed and cut. There was minimal back bleeding from the uterus. Attention was turned to the vaginal portion of the case. The anterior vagina was infiltrated w/ lidocaine with dilute epinephrine. A circumfrential incision was made with scapel, anterior colpotomy was made with blunt and sharp dissection. The posterior culdesac was entered sharpy with curved shen scissors. Heny clamps were placed, pedicles were transected and suture ligated. this was peformed on cardinal and uterosacral ligaments. Once the uterus was freed the specimen was removed without difficulty. The specimen was handed off. The cuff was closed with interrupted 0-vicryl figure of 8 sutures. cystoscopy was performed- bladder intact and both ureteral jets appreciated. The pneumoperitoneum was recreated and the cuff and pedicles were hemostatic. John placed over cuff. The ureters were both seen and peristalsing. The skin incisions were closed with skin glue and 3-0 monocryl. The vaginal sweep was completed by me. Grafts/Implants Used: none Grafts/Implants Used: none - Complications none - Admit VTE Documentation VTE Present on Admission: Yes VTE Mechan Device Prophylaxis: SCD's VTE Pharm Prophylaxis ordered?: Yes
--- NOTE | 2020-08-06 08:00 | HYST_PTH ---
PATIENT: LORENZO COX LOC: [facility] [place] U#:[id number] AGE/SX: 50/F ROOM: RE08/06/[address]: Dr. Fanny Aguiar, MDDOB: 1970 BED: DIS: 08/06/2020 SPEC #: [id number] RECD: 08/06/20 10:42 STATUS: NEAL RENica #: [id number] KAYLI: 08/06/20 08:[address]: Fanny Aguiar DEPT: SURGICAL PATHOLOGY RECD BY: Stefani Barragan ENTERED: 08/06/20 11:40 SP TYPE: HYSTERECT OTHR DR: Dr. Blade Toure, DO Tissues: Uterus, NOS Procedures: Surgery Specimen Level V HEADER OPERATION: ERAS, laparoscopic assisted vaginal hysterectomy, salpingectomy PRE-OP DIAGNOSIS: Adenoma in situ carcinoma of uterus TISSUE SUBMITTED: Uterus and bilateral fallopian tubes MICROSCOPIC DIAGNOSIS Uterus and bilateral fallopian tubes, vaginal hysterectomy and bilateral salpingectomy: Cervix - negative for endocervical adenocarcinoma in situ. Extensive ulceration consistent with previous biopsy site. Endometrium - proliferative endometrium. Myometrium - a subserosal leiomyoma (2 cm in diameter). - Adenomyosis. Bilateral fallopian tubes - no pathologic diagnosis. Paratubal cysts. SJ:rg 08/07/2020 COMMENT Please make reference to previous specimen ([id number]) cervix, cold knife conization with diagnosis of focal area of endocervical adenocarcinoma in situ and multifocal endocervical glandular dysplasia. MICROSCOPIC DESCRIPTION Slides are reviewed. GROSS DESCRIPTION Received in fixative is one container labeled with the patient's name and designated uterus and bilateral fallopian tubes. The specimen consists of a hysterectomy specimen consisting of uterus with cervix and detached bilateral fallopian tubes. The uterus with cervix weighs 72 gm and measures 8 x 6 x 4 cm. The serosal surface is mahmood, glistening. The ectocervical mucosa is unremarkable. The ectocervix is partly disrupted. The external os is slit-like in contour. A subserosal nodule is also noted. The resection margin of the cervix is inked black. The endocervical canal measures 2.5 cm in length and the endocervical mucosa appears denuded. No mass lesion is noted. The endometrial cavity measures 3.5 cm in length and up to 2 cm in width. The endometrium is mahmood, glistening without any mass lesion and measures 0.1 cm in thickness. Sections of the uterine wall reveal a subserosal nodule measuring 2 cm in diameter. Sections of this mass reveals mahmood whorled cut surfaces without areas of hemorrhage, necrosis or cystic degeneration. The uninvolved uterine wall measures up to 2 cm in thickness. The proximal end of the bilateral fallopian tubes show Filshie clips which appear intact. The fallopian tubes are not identified as right or left and measures 4.5 cm in length and 0.5 cm in diameter and 4 cm in length and 0.5 cm in diameter. The fimbrial ends are identified. Two paratubal cysts are noted. Senior Radiation Protection Technician sections are submitted in 16 cassettes as follows: 1-8 - cervix like a cone, (1 & 2 - 12 to 3 o'clock, 3 & 4 - 3 to 6 o'clock, 5 & 6 - 6 to 9 o'clock, 7 & 8 - 9 to 12 o'clock), 9 - endocervical-endometrial junction, anterior (inked black), posterior (inked blue), 10 & 11 - anterior uterine wall, 12 & 13 - posterior uterine wall, 14 - nodular mass, 15 - one fallopian tube, 16 - second fallopian tube and paratubal cyst. / MARYCHUY:shanthi 08/06/20 TC:1 CPT: 53618
[2020-08-06] MEDS: Cefazolin 2 GM in 0.9% Normal Saline 100 ML IV (08:08)
[2020-08-06] MEDS: Lidocaine 2% /Epi 1:100 (50ml) 50 ML Vial (09:04)
[2020-08-06] MEDS: Ondansetron 4 MG/2 ML Vial IV (09:22)
[2020-08-06] MEDS: Bupivacaine Mpf 0.5% 30 ML VIAL (09:50)
[2020-08-06] MEDS: Lactated Ringers 1,000 ML 70 ML IV ×2 (10:23→11:54)
[2020-08-06] MEDS: Ketorolac 30 MG/ML Syringe IV (13:30)
[2020-08-06 13:40] LABS: Hematocrit 36.8 % (37-47); Hemoglobin 12.7 g/dL (12.0-15.0); Mean Corp Hgb Conc 34.5 g/dL (32-36); Mean Corpuscular Hgb 32.3 pg (27.0-32.0); Mean Corpuscular Volume 93.6 fL (81-99); Mean Platelet Vol. 9.8 fl (6.2-12.0); Platelet Count 219 K/mm3 (150-450); RBC Distribution Width CV 11.7 % (11.6-14.6); RBC Distribution Width SD 40.4 fl (35.1-43.9); Red Blood Count 3.93 M/mm3 (4.2-5.4); White Blood Count 11.5 K/mm3 (4.4-11.0)
== END 2020-08-06 14:55 | disposition home or self-care (01) ==
LOC: SDC 05:53 → AC 05:54
PROVIDERS: Anesthesiology; PCP Student in an Organized Health Care Education/Training Program; Referring Provider Obstetrics & Gynecology; Visit Provider Obstetrics & Gynecology
PROC: 0UT94ZZ Resection of Uterus, Percutaneous Endoscopic Approach (ICD-10-PCS; CPT 58552; principal; 2020-08-06 07:40)
DX: D25.2 Subserosal leiomyoma of uterus (principal); N80.0 Endometriosis of uterus; N83.8 Other noninflammatory disorders of ovary, fallopian tube and broad ligament; E89.0 Postprocedural hypothyroidism
CPT/HCPCS: 58552; 36415; 80048; 81025; 82962; 83735; 84443; 85027; 87426; 88307; 93005; C9803; J7120; J1940; J2405

== ENCOUNTER → 2020-12-09 13:48 | Outpatient (CLI) | payer OTHER, SELFPAY ==
[2020-08-06 06:24] VITALS: BMI 27.1
[2020-12-09 14:54] LABS: Hematocrit 39.5 % (37-47); Hemoglobin 13.5 g/dL (12.0-15.0); Mean Corp Hgb Conc 34.2 g/dL (32-36); Mean Corpuscular Hgb 31.8 pg (27.0-32.0); Mean Corpuscular Volume 93.2 fL (81-99); Mean Platelet Vol. 10.3 fl (6.2-12.0); Platelet Count 256 K/mm3 (150-450); RBC Distribution Width CV 11.9 % (11.6-14.6); RBC Distribution Width SD 40.8 fl (35.1-43.9); Red Blood Count 4.24 M/mm3 (4.2-5.4); White Blood Count 5.9 K/mm3 (4.4-11.0)
[2020-12-09 15:48] LABS: Anion Gap 3 (5-15); BUN 13 mg/dL (7-18); BUN/Creat Ratio 19.8 RATIO (10-20); Chloride 104 mmol/L (98-107); Creatinine, Serum 0.66 mg/dL (0.55-1.02); EST Glomerular Filtration Rate 101 mL/min (>60); Est Glom Filt Rate - Afr Amer 122 mL/min (>60); Glucose 73 mg/dL (74-106); Potassium 3.5 mmol/L (3.5-5.1); Sodium Level 139 mmol/L (136-145)
== END ==
LOC: PSN 13:50 → LAB 13:55
PROVIDERS: PCP Student in an Organized Health Care Education/Training Program; Referring Provider Physician Assistant; Visit Provider Physician Assistant
DX: Z01.810 Encounter for preprocedural cardiovascular examination (principal); Z01.818 Encounter for other preprocedural examination
CPT/HCPCS: 36415; 80048; 85027

== ENCOUNTER → 2020-12-11 15:23 | Outpatient (CLI) | payer OTHER, SELFPAY ==
[2020-08-06 06:24] VITALS: BMI 27.1
--- NOTE | 2020-12-10 14:00 | CYST_PTH ---
PATIENT: LORENZO COX LOC: [facility] U#:[id number] AGE/SX: 54/F ROOM: RE12/11/[address]: Dr. Cruz Arevalo DO : 1970 BED: DIS: SPEC #: [id number] RECD: 12/11/20 15:03 STATUS: NEAL RENica #: [id number] KAYLI: 12/10/20 14:[address]: Cruz Arevalo DEPT: SURGICAL PATHOLOGY RECD BY: Stefani Barragan ENTERED: 12/14/20 08:34 SP TYPE: Cyst OTHR DR: Dr. Blade Toure, [facility] Tissues: CYST Procedures: Surgery Specimen Level IV HEADER OPERATION: Excision of cyst left small finger PRE-OP DIAGNOSIS: Ganglion left hand TISSUE SUBMITTED: Cyst left small finger MICROSCOPIC DIAGNOSIS Cyst left small finger, excision: Benign vascular proliferation, consistent with hemangioma. MARYCHUY:shanthi 12/15/2020 MICROSCOPIC DESCRIPTION Slides are reviewed. GROSS DESCRIPTION Received is one container labeled with the patient's name and not further designated. The specimen consists of a piece of mahmood soft tissue measuring 0.4 x 0.4 x 0.2 cm. The entire specimen is submitted in one cassette. / SJ:shanthi 12/14/20 TC:1 CPT: 84068
== END ==
PROVIDERS: PCP Student in an Organized Health Care Education/Training Program; Referring Provider Orthopaedic Surgery; Visit Provider Orthopaedic Surgery
DX: L72.8 Other follicular cysts of the skin and subcutaneous tissue (principal)
CPT/HCPCS: 88304; 88305

== ENCOUNTER 2023-10-18 17:00 | Outpatient (RCR) | payer OTHER, BC, SELFPAY ==
--- NOTE | 2023-09-05 16:34 | HP.OTEVAL ---
Patient's Visit Information Visit Information Visit Information: LORENZO COX is a 53 year old F, referred to Occupational Therapy by Dr. Jacobo Pino MD, with a diagnosis of medial epicondylitis. Date of Evaluation: 09/05/23 Occupational Therapist: Rima Foster Subjective Subjective: pt arrives stating she is feeling okay having pain/ tingling/ burning along medial epicondyle region Objective Objective/Observation: This 53 year old female referred to skilled OT due to medial epicondylitis. pt reports pain/ numbness/ tingling in medial epicondyle distribution. Pt reports feels pain/ burning mostly at night. pt with ulnar nerve transposition complete x8 years ago however has had discomfort since this. Pt Doctor provided with R elbow brace with gle for nighttime wear. Pts current condition has impacted day to day tasks including driving. ROM ROM Comments: BUE AROM WFL Strength Plant Quality Manager: L and R broadcast field supervisor strength at 60 pounds Lateral Pinch: L 12 R 12 Tripod Pinch: L11 R11 Strength Comments: grp with dynomometer tested in 90 degrees elbow flexion then in stress test position at 60 pounds for L and R hand . pt is demonstrating equal strength of L and R hand as well as pinch at this time Sensation Sensation Comments: pt reports tingling/ burning sensation from medial epicondyle to base of wrist and tip of D5 which has been numb since sx 8 years ago Quick DASH-Disab of Arm,Shoulder& Hand Quick DASH Score: 38.6350 Goals Goal:: pt will report a decrease in pain score of 1/10 or less during self care/ leisure and or AIDL tasks Goal:: pt will demonstrate 100% accuracy in proper joint protection and positioning especially with reaching/ carrying of items by second session Goal:: pt will demonstrate an increased quick dash score decreasing sum score 38 by 8-10 points by discharge Goal:: pt will demonstrate 100% in R orthosis night time/ daytime wear as needed to decrease pain increase functional use by discharge Rehabilitation General Assessment: pt point tender at medial epicondyle with pain mostly at night time. pt states pain will extend down into flxor pronator mass of forearm. pt reports burning/ tingling sensation at medial epicondyle Rehabilitation Potential: Good Anticipated Interventions Anticipated Interventions: Massage, Triggerpoint Release, Sensory Retraining, Modalities, Orthoses, Joint Protection/Energy Conservation, Ergonomic Education and Home Program Visit Plan Frequency: 2x /Week Duration: 2 Months General Plan: provide training in joint protection and positioning orthosis training as PRN HEP training modalities for pain management TEXT: Thank you for the opportunity to evaluate your patient. For Medicare and Medicare HMO plans, please review the plan of care and approve it. It will need to be FAXED BACK to us at [phone] for Medicare purposes. Please let me know if there are questions or concerns regarding this plan of care. Physician Signature: Date:
== END 2023-10-18 19:00 | disposition home or self-care (01) ==
LOC: OT 17:00
PROVIDERS: PCP Student in an Organized Health Care Education/Training Program; Referring Provider Orthopaedic Surgery; Visit Provider Orthopaedic Surgery
DX: M77.01 Medial epicondylitis, right elbow (principal)
CPT/HCPCS: 97035; 97110; 97140; 97166